=== PATIENT | male | born 1985 | race Caucasian/White ===

== ENCOUNTER 2016-03-26 13:37 | Emergency (ER) | payer OTHER ==
[2016-03-26 13:42] VITALS: BP 131/73; PULSE 74; RESP 18; TEMP 97.6
--- NOTE | 2016-03-26 14:00 | ED ---
General Adult HPI - General Chief complaint: Fall Stated complaint: Fall/10 stairs/Rib pain Time Seen by Provider: 03/26/16 13:50 Source: patient, RN notes reviewed Mode of arrival: ambulatory Limitations: no limitations - History of Present Illness Initial comments: The patient 30-year-old male who presents emergency room today with chief complaint fall occurred 3 days ago. He does admit that he slipped going down some steps. Does admit that he hit the left side of his ribs. Admits that his had some neck stiffness to the right side. States worse with movements. States he noticed the rib pain with certain movements and he coughs wheezes. Does admit that he believes he reinjured an old rib injury from a few months ago. He admits to some bruising over the right knee. Since she's been improving. He denies any other complaints or symptoms. Denies any headaches. Denies any loss consciousness. Patient denies any recent fever, chills, shortness of breath, chest pain, back pain, abdominal pain, nausea or vomiting, numbness or tingling, dysuria or hematuria, constipation or diarrhea, headaches or visual changes, or any other complaints. - Related Data Home Medications Medication Instructions Recorded Confirmed Baclofen 10 mg PO TID PRN 06/25/15 06/25/15 Hydrocodone/Acetaminophen [[place] 1 tab PO BID PRN 06/25/15 06/25/15 7.5-325] Omeprazole [PriLOSEC] 20 mg PO AC-BID 06/25/15 06/25/15 Previous Rx's Medication Instructions Recorded Gabapentin [Neurontin] 800 mg PO TID #42 cap 06/30/15 QUEtiapine [SEROquel] 150 mg PO HS #21 tab 06/30/15 Sertraline [Zoloft] 100 mg PO DAILY #15 tab 06/30/15 busPIRone HCL 15 mg PO TID #21 tab 06/30/15 HYDROcodone/APAP 5-325MG [[place] 1 tab PO Q4HR PRN #20 tab 01/04/16 5-325] Ibuprofen [Motrin] 800 mg PO Q8H PRN #20 tab 01/04/16 traMADol HCl [Ultram] 50 mg PO Q6H PRN #30 tab 03/26/16 Allergies Allergy/AdvReac Type Severity Reaction Status Date / Time venom-honey bee Allergy Anaphylaxis Verified 03/26/16 13:42 [bee venom (honey bee)] Review of Systems ROS Statement: Those systems with pertinent positive or pertinent negative responses have been documented in the HPI. ROS Other: All systems not noted in ROS Statement are negative. Past Medical History Past Medical History: Unable to Obtain, GERD/Reflux Additional Past Medical History / Comment(s): chronic low back pain, sciatica R leg, DDD, numbness to bilateral feet at times, falls, sinus problems at times, astigmatism involving 1 eye (pt unsure which). History of Any Multi-Drug Resistant Organisms: None Reported Past Surgical History: Adenoidectomy, Appendectomy, Tonsillectomy Past Anesthesia/Blood Transfusion Reactions: No Reported Reaction Past Psychological History: Anxiety, Bipolar, Depression Additional Psychological History / Comment(s): Pt states he may not be bipolar but may have borderline personality disorder instead. He has hx of suicide attempt 2014 with hospitalization and intubated and ventilated. Pt lives with his girlfriend. He has a suspended license. Smoking Status: Current every day smoker Past Alcohol Use History: Daily Additional Past Alcohol Use History / Comment(s): Pt states he is an alcoholic and has been on and off drinking. He states he last drank yesterday. He states he now does not go over 14 drinks/week. He states he smokes marijuana about 1-1 1/2 ounces a day. He states he is marijuana dependent. He denies any other drug abuse-states he takes medication as prescribed. He started smoking at age 13 yrs and was up to 1 1/2 ppd-has started using vapors and now smokes 1/2 ppd. Past Drug Use History: Marijuana Additional Drug Use History / Comment(s): See above section - Past Family History Father Family Medical History: Coronary Artery Disease (CAD) Additional Family Medical History / Comment(s): Father at age 57yrs during open heart surgery. Mother Family Medical History: Congestive Heart Failure (CHF) Additional Family Medical History / Comment(s): Mother of either CHF or heart valve problem at the age of 50yrs. General Exam - General Exam Comments Initial Comments: General: The patient is awake and alert, in no distress, and does not appear acutely ill. Eye: Pupils are equal, round and reactive to light, extra-ocular movements are intact. No nystagmus. There is normal conjunctiva bilaterally. No signs of icterus. Ears, nose, mouth and throat: There are moist mucous membranes and no oral lesions. Neck: The neck is supple, there is no tenderness or JVD. Cardiovascular: There is a regular rate and rhythm. No murmur, rub or gallop is appreciated. Respiratory: Lungs are clear to auscultation, respirations are non-labored, breath sounds are equal. No wheezes, stridor, rales, or rhonchi. Gastrointestinal: Soft, non-distended, non-tender abdomen without masses or organomegaly noted. There is no rebound or guarding present. No CVA tenderness. Bowel sounds are unremarkable. Musculoskeletal: Normal ROM. Normal appearance of cervical, thoracic, lumbar spine. No step-offs deformity is appreciated. Shows full range of motion of the cervical, thoracic, lumbar spine. No point tenderness. No bruising or swelling. Mild tenderness over the left lateral ribs. No step-offs. Strength 5/5. Sensation intact. Pulses equal bilaterally 2+. Neurological: A&O x 3. CN II-XII intact, There are no obvious motor or sensory deficits. Coordination appears grossly intact. Speech is normal. Skin: Skin is warm and dry and no rashes or lesions are noted. Psychiatric: Cooperative, appropriate mood & affect, normal judgment. Limitations: no limitations Course Vital Signs 03/26/16 13:38 Temperature 97.6 F Pulse Rate 74 Respiratory 18 Rate Blood Pressure 131/73 O2 Sat by Pulse 99 Oximetry Medical Decision Making - Medical Decision Making Patient's x-ray reviewed are unremarkable. Patient will be discharged home with prescriptions for tramadol. Disposition Clinical Impression: Contusion of rib on left side Disposition: HOME SELF-CARE Condition: Good Instructions: Rib Contusion (ED) Additional Instructions: Please use medication as discussed. Please follow-up with family doctor in the next 2 days of symptoms have not improved. Please return to emergency room if the symptoms increase or worsen or for any other concerns. Prescriptions: traMADol HCl [Ultram] 50 mg PO Q6H PRN #30 tab PRN Reason: Pain Time of Disposition: 14:28
--- NOTE | 2016-03-26 14:16 | XR ---
EXAMINATION TYPE: XR chest 2V DATE OF EXAM: 03/26/2016 2:04 PM COMPARISON: Prior chest x-ray December 2015 HISTORY: Fall downstairs TECHNIQUE: Frontal and lateral views of the chest are obtained. FINDINGS: There is no focal air space opacity, pleural effusion, or pneumothorax seen. The cardiac silhouette size is within normal limits. The osseous structures are intact. IMPRESSION: No acute cardiopulmonary process.
== END 2016-03-26 14:38 | disposition home or self-care (01) ==
LOC: EC 13:37
DX: S20.212A Contusion of left front wall of thorax, initial encounter (principal); W10.9XXA Fall (on) (from) unspecified stairs and steps, initial encounter; K21.9 Gastro-esophageal reflux disease without esophagitis; F17.200 Nicotine dependence, unspecified, uncomplicated; F12.20 Cannabis dependence, uncomplicated; F31.9 Bipolar disorder, unspecified; F41.9 Anxiety disorder, unspecified; Z79.899 Other long term (current) drug therapy; Z91.030 Bee allergy status
CPT/HCPCS: 71020; 99284

== ENCOUNTER → 2016-04-06 | Outpatient (CLI) | payer OTHER ==
--- NOTE | 2016-04-06 20:24 | XR ---
EXAMINATION TYPE: XR ribs LT DATE OF EXAM: 04/06/2016 7:16 PM COMPARISON: NONE HISTORY: Rib pain after falling a couple weeks ago TECHNIQUE: 4 views FINDINGS: There is a nondisplaced oblique fracture left anterior eighth rib. There is no sign of pleu ral effusion or pneumothorax. Left lung is clear of infiltrate. There is some bridging callus. IMPRESSION: Healing fracture anterior left eighth rib.
== END | disposition home or self-care (01) ==
LOC: RADXRMAIN 19:02
PROVIDERS: ATTEND Physician Assistant Medical
DX: S22.32XD Fracture of one rib, left side, subsequent encounter for fracture with routine healing (principal); R10.12 Left upper quadrant pain

== ENCOUNTER 2016-08-10 16:01 | Emergency (ER) | payer OTHER ==
[2016-08-10 16:08] VITALS: BP 133/69; PULSE 100; RESP 18; TEMP 97.8
--- NOTE | 2016-08-10 16:16 | ED ---
Skin/Abscess/FB HPI - General Chief complaint: Skin/Abscess/Foreign Body Stated complaint: Scab on Finger Time Seen by Provider: 08/10/16 16:09 Source: patient, RN notes reviewed Mode of arrival: ambulatory Limitations: no limitations - History of Present Illness Initial comments: 30-year-old male presents emergency Department chief complaint left hand third digit finger pain. Patient states that he is always has slight callused area most likely a wart. He states that he normally clicks it with toenail clippers. Patient states that he recently did that and states now it is red, swollen and slightly painful. Denies any fevers or chills. Patient states she' s had an infection like this in the past. Patient denies any other complaints. - Related Data Home Medications Medication Instructions Recorded Confirmed Baclofen 10 mg PO TID PRN 06/25/15 06/25/15 Hydrocodone/Acetaminophen [[place] 1 tab PO BID PRN 06/25/15 06/25/15 7.5-325] Omeprazole [PriLOSEC] 20 mg PO AC-BID 06/25/15 06/25/15 Previous Rx's Medication Instructions Recorded Gabapentin [Neurontin] 800 mg PO TID #42 cap 06/30/15 QUEtiapine [SEROquel] 150 mg PO HS #21 tab 06/30/15 Sertraline [Zoloft] 100 mg PO DAILY #15 tab 06/30/15 busPIRone HCL 15 mg PO TID #21 tab 06/30/15 HYDROcodone/APAP 5-325MG [[place] 1 tab PO Q4HR PRN #20 tab 01/04/16 5-325] Ibuprofen [Motrin] 800 mg PO Q8H PRN #20 tab 01/04/16 traMADol HCl [Ultram] 50 mg PO Q6H PRN #30 tab 03/26/16 Cephalexin [Keflex] 500 mg PO Q6HR #40 cap 08/10/16 Allergies Allergy/AdvReac Type Severity Reaction Status Date / Time venom-honey bee Allergy Anaphylaxis Verified 08/10/16 16:08 [bee venom (honey bee)] Review of Systems ROS Statement: Those systems with pertinent positive or pertinent negative responses have been documented in the HPI. ROS Other: All systems not noted in ROS Statement are negative. Past Medical History Past Medical History: GERD/Reflux Additional Past Medical History / Comment(s): chronic low back pain, sciatica R leg, DDD, numbness to bilateral feet at times, falls, sinus problems at times, astigmatism involving 1 eye (pt unsure which). History of Any Multi-Drug Resistant Organisms: None Reported Past Surgical History: Adenoidectomy, Appendectomy, Tonsillectomy Past Anesthesia/Blood Transfusion Reactions: No Reported Reaction Past Psychological History: Anxiety, Bipolar, Depression Additional Psychological History / Comment(s): Pt states he may not be bipolar but may have borderline personality disorder instead. He has hx of suicide attempt 2014 with hospitalization and intubated and ventilated. Pt lives with his girlfriend. He has a suspended license. Smoking Status: Current every day smoker Past Alcohol Use History: Occasional Additional Past Alcohol Use History / Comment(s): Pt states he is an alcoholic and has been on and off drinking. He states he last drank yesterday. He states he now does not go over 14 drinks/week. He states he smokes marijuana about 1-1 1/2 ounces a day. He states he is marijuana dependent. He denies any other drug abuse-states he takes medication as prescribed. He started smoking at age 13 yrs and was up to 1 1/2 ppd-has started using vapors and now smokes 1/2 ppd. Past Drug Use History: Marijuana Additional Drug Use History / Comment(s): See above section - Past Family History Father Family Medical History: Coronary Artery Disease (CAD) Additional Family Medical History / Comment(s): Father at age 57yrs during open heart surgery. Mother Family Medical History: Congestive Heart Failure (CHF) Additional Family Medical History / Comment(s): Mother of either CHF or heart valve problem at the age of 50yrs. General Exam Limitations: no limitations General appearance: alert, in no apparent distress Respiratory exam: Present: normal lung sounds bilaterally. Absent: respiratory distress, wheezes, rales, rhonchi, stridor Cardiovascular Exam: Present: regular rate, normal rhythm, normal heart sounds. Absent: systolic murmur, diastolic murmur, rubs, gallop, clicks Extremities exam: Present: other (Left hand third digit there is no erythema, callused region with no pustule on it) Course Vital Signs 08/10/16 16:05 Temperature 97.8 F Pulse Rate 100 Respiratory 18 Rate Blood Pressure 133/69 O2 Sat by Pulse 99 Oximetry Medical Decision Making - Medical Decision Making 30-year-old male presented for left hand finger pain. Patient has cellulitis of his finger secondary to cutting a wart with nail clippers. Patient was placed on Keflex patient follow-up with PCP return parameters were discussed. Disposition Clinical Impression: Cellulitis of finger of left hand Disposition: HOME SELF-CARE Condition: Stable Instructions: Cellulitis (ED) Additional Instructions: Please return to the Emergency Department if symptoms worsen or any other concerns. Prescriptions: Cephalexin [Keflex] 500 mg PO Q6HR #40 cap Referrals: Hayde Perez MD [Primary Care Provider] - 1-2 days Time of Disposition: 16:16
== END 2016-08-10 16:26 | disposition home or self-care (01) ==
LOC: EC 16:01
DX: L03.012 Cellulitis of left finger (principal); K21.9 Gastro-esophageal reflux disease without esophagitis; F17.200 Nicotine dependence, unspecified, uncomplicated; Z79.899 Other long term (current) drug therapy; Z91.030 Bee allergy status
CPT/HCPCS: 99283

== ENCOUNTER 2017-03-08 11:43 | Emergency (ER) | payer OTHER ==
[2017-03-08 12:07] VITALS: BP 145/85; PULSE 92; RESP 18; TEMP 97.5
[2017-03-08] MEDS ORDERED: IBUPROFEN 600 MG TAB PO STA (12:14)
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
--- NOTE | 2017-03-08 12:49 | XR ---
Bilateral RIBS with chest x-ray HISTORY: Trauma and pain Frontal view of the chest and 4 views of each side ribs submitted on a total of 9 images. Correlation to left RIBS 04/06/2016, chest x-ray 03/26/2016 Cardiac mediastinal silhouette, pulmonary vascularity and giovanna are within normal limits. There is no airspace disease, pneumothorax, or pleural effusion evident. There is no displaced rib fracture. IMPRESSION: No acute abnormality, bone scan may be of benefit to assess for occult fracture as indica ayala.
--- NOTE | 2017-03-08 12:50 | XR ---
Sternum HISTORY: Trauma and pain 2 views of the sternum No depressed sternal fracture evident. Bone mineralization is maintained. IMPRESSION: CT scan is of increased sensitivity to assess for sternal fracture. Consider bone scan as indicated for possible occult fracture.
== END 2017-03-08 13:30 | disposition home or self-care (01) ==
LOC: EC 11:43
DX: R07.89 Other chest pain (principal); S00.81XA Abrasion of other part of head, initial encounter; S80.212A Abrasion, left knee, initial encounter; F17.200 Nicotine dependence, unspecified, uncomplicated; Z87.828 Personal history of other (healed) physical injury and trauma; Z91.030 Bee allergy status; V43.62XA Car passenger injured in collision with other type car in traffic accident, initial encounter
CPT/HCPCS: 71111; 71120; 93005; 99284

== ENCOUNTER → 2017-03-18 | Outpatient (CLI) | payer OTHER ==
--- NOTE | 2017-03-18 14:23 | XR ---
EXAM TYPE: LUMBAR SPINE X RAY SERIES COMPARISON: 07/27/2014 HISTORY: Pain TECHNIQUE: 4 views are submitted. FINDINGS: Alignment is anatomic. The pedicles are intact. The transverse processes are intact. There is susp ected spondylolysis of L5. There is a chronic appearing wedge deformity of T12. Multilevel mild to moderate degenerative disc disease. Minimal anterolisthesis of L5 on S1. Chronic a ppearing endplate deformity of L4. Suspect spina bifida occulta of sacrum. IMPRESSION: 1. Multilevel degenerative disc disease with chronic appearing anterior mild wedge deformity T12. 2. Mild anterolisthesis L5 on S1 with bilateral spondylolysis. This can result in foraminal encroachm ent and canal stenosis consider MRI follow-up.
== END | disposition home or self-care (01) ==
LOC: RADXRMAIN 13:44
PROVIDERS: ATTEND Internal Medicine
DX: M51.36 Other intervertebral disc degeneration, lumbar region (principal); M47.816 Spondylosis without myelopathy or radiculopathy, lumbar region; M43.17 Spondylolisthesis, lumbosacral region
CPT/HCPCS: 72100

== ENCOUNTER → 2017-09-05 | Outpatient (CLI) | payer OTHER ==
--- NOTE | 2017-09-05 07:40 | MR ---
EXAMINATION TYPE: MR lumbar spine wo con DATE OF EXAM: 09/05/2017 COMPARISON: Lumbar spine x-ray March 18, 2017. CT lumbar spine July 27, 2014. HISTORY: Low back pain and herniated L5-S1 disc per order. Low back pain for 3 years going into right buttocks and thigh per patient. TECHNIQUE: Multiplanar, multisequence imaging of the lumbar spine is performed without IV contrast. FINDINGS: Sagittal images of the lumbar spine show vertebral body heights to remain satisfactory. The re is subtle or slight grade 1 anterolisthesis of L5 on S1. Bilateral pars defects are present confir med in retrospect on CT axial image 67. Prominent Schmorl node superior L4 endplate is redemonstrated posteriorly sagittal image 6. Disc desiccation L3-L4 and L5-S1 levels is noted. Mild disc space apollo rowing L5-S1 level is seen. Posterior disc herniations at these levels are present on sagittal images . The conus medullaris is normal in position and signal ending mid L1 level. The bone marrow signal intensity is within normal limits. No significant spurring is present. Axial images at T12-L1 level shows mild lobulated broad disc bulge mildly effacing anterior thecal sa c on axial image 28, bilateral neural foramina are patent. Axial images at L1-L2 level show mild broad disc bulge mildly effacing anterior thecal sac on axial i mage 23, bilateral neural foramina are patent. Axial images at L2-L3 level are felt within normal limits. Axial images at L3-L4 level show mild to moderate broad disc bulge with left paracentral disc protrus ion component axial image 12 effacing anterior thecal sac. Increased signal posteriorly consistent wi th annular tear is present. Bilateral neural foramina remain patent. Axial images at L4-L5 level are felt to appear within normal limits. Axial images at L5-S1 level show spondylolisthesis and broad-based right paracentral disc protrusion axial image 3 minimally effacing anterior thecal sac, there is asymmetric mild to moderate right-side d inferior neural foraminal narrowing encroaching on inferior right L5 nerve seen best sagittal image 10. Left-sided neural foramen is patent. Paraspinal muscle bulk is maintained. No suspicious retroperitoneal findings are noted. IMPRESSION: Multilevel degenerative changes as detailed above. Findings most prominent at L3-L4 and L 5-S1 levels. New subtle spondylolisthesis L5-S1 level due to bilateral L5 pars defects along with dis c herniation causing effacement of the exiting right L5 nerve likely accounting for patient's symptom s.
== END | disposition home or self-care (01) ==
LOC: RADMRIMAIN 06:15
PROVIDERS: ATTEND Internal Medicine
DX: M43.17 Spondylolisthesis, lumbosacral region (principal); M47.816 Spondylosis without myelopathy or radiculopathy, lumbar region; M47.817 Spondylosis without myelopathy or radiculopathy, lumbosacral region; M51.26 Other intervertebral disc displacement, lumbar region
CPT/HCPCS: 72148

== ENCOUNTER 2017-09-24 12:31 | Emergency (ER) | payer OTHER ==
[2017-09-24 12:44] VITALS: BP 146/77; PULSE 78; RESP 20; TEMP 98.4
[2017-09-24] MEDS ORDERED: HYDROcodone/APAP 7.5-325MG 1 EACH TAB PO ONE (12:56)
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
== END 2017-09-24 13:26 | disposition home or self-care (01) ==
LOC: EC 12:31
DX: G89.29 Other chronic pain (principal); M54.5 Low back pain; M51.25 Other intervertebral disc displacement, thoracolumbar region; M79.604 Pain in right leg; M79.605 Pain in left leg; F17.200 Nicotine dependence, unspecified, uncomplicated; Z91.030 Bee allergy status
CPT/HCPCS: 99283

== ENCOUNTER 2018-09-22 15:14 | Emergency (ER) | payer OTHER ==
[2018-09-22 15:28] VITALS: RESP 18
[2018-09-22 16:54] LABS: Appearance,Urine Clear (Clear); Bilirubin,Urine Negative (Negative); Blood,Urine Moderate (Negative); Calcium Oxalate Crystals,Urine Rare /hpf; Color,Urine Yellow; Glucose,Urine (UA) 2+ (Negative); Ketones,Urine Negative (Negative); Leukocyte Esterase,Urine Negative (Negative); Mucus,Urine Few /hpf; Nitrite,Urine Negative (Negative); Protein,Urine 1+ (Negative); RBC,Urine >182 /hpf (0-5); Specific Gravity,Urine 1.018 (1.001-1.035); WBC,Urine 8 /hpf (0-5)
--- NOTE | 2018-09-22 17:22 | CT ---
EXAMINATION TYPE: CT abdomen pelvis wo con DATE OF EXAM: 09/22/2018 HISTORY: Left flank pain CT DLP: 347.4 mGycm. Automated Exposure Control for Dose Reduction was Utilized. TECHNIQUE: CT scan of the abdomen and pelvis is performed without oral or IV contrast. COMPARISON: None FINDINGS: Within the limitations of a non-contrast study, the following observations are made. LUNG BASES: No significant abnormality is appreciated. LIVER/GB: No significant abnormality is appreciated. PANCREAS: No significant abnormality is seen. SPLEEN: No significant abnormality is seen. ADRENALS: No significant abnormality is seen. KIDNEYS: There is no hydronephrosis or hydroureter. There are a few scattered 1 mm right renal nonobs tructing calcifications, these are subtle. BOWEL: No significant abnormality is seen. GENITAL ORGANS: No gross abnormality seen. LYMPH NODES: No greater than 1cm abdominal or pelvic lymph nodes are appreciated. OSSEOUS STRUCTURES: No significant abnormality is seen. 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 OTHER: No significant additional abnormality is seen. IMPRESSION: Negative for obstructive uropathy; no acute process.
--- NOTE | 2018-09-22 17:25 | ED ---
Abdominal Pain HPI - General Chief Complaint: Abdominal Pain Stated Complaint: abd/back pain Time Seen by Provider: 09/22/18 15:38 Source: patient, family Mode of arrival: wheelchair Limitations: no limitations - History of Present Illness Initial Comments: Patient is a 32-year-old male presenting to emergency Department with abdominal pain. Patient reports the pain started approximately 2 hours ago and has since resolved. Patient reports the pain was sharp in nature and alleviated when resting in position. Patient reports a history of kidney stones and states this feels exactly the same. Patient reports the pain started in his left lower flank region and radiates across the left groin. Patient reports nausea but no vomiting. Patient also reports obstructive urinary symptoms but denies hematuria, hematochezia or melena. Patient denies taking any medication to alleviate the symptoms. - Related Data Previous Rx's Medication Instructions Recorded Ondansetron Odt [Zofran Odt] 4 mg PO Q8HR PRN #10 tab 09/22/18 Tamsulosin [Flomax] 0.4 mg PO DAILY #7 cap 09/22/18 Allergies Allergy/AdvReac Type Severity Reaction Status Date / Time venom-honey bee Allergy Anaphylaxis Verified 09/22/18 15:55 [bee venom (honey bee)] Review of Systems ROS Statement: Those systems with pertinent positive or pertinent negative responses have been documented in the HPI. ROS Other: All systems not noted in ROS Statement are negative. Past Medical History Past Medical History: GERD/Reflux Additional Past Medical History / Comment(s): chronic low back pain, sciatica R leg, DDD, numbness to bilateral feet at times, falls, sinus problems at times, astigmatism involving 1 eye (pt unsure which). History of Any Multi-Drug Resistant Organisms: MRSA Past Surgical History: Adenoidectomy, Appendectomy, Tonsillectomy Past Anesthesia/Blood Transfusion Reactions: No Reported Reaction Past Psychological History: Anxiety, Bipolar, Depression Smoking Status: Current every day smoker Past Alcohol Use History: None Reported Past Drug Use History: Marijuana, Methamphetamine - Past Family History Father Family Medical History: Coronary Artery Disease (CAD) Additional Family Medical History / Comment(s): Father at age 57yrs during open heart surgery. Mother Family Medical History: Congestive Heart Failure (CHF) Additional Family Medical History / Comment(s): Mother of either CHF or heart valve problem at the age of 50yrs. General Exam - General Exam Comments Initial Comments: General: Well-developed well-nourished distress HEENT: Normocephalic/atraumatic, PERLL, pharynx erythema, swallowing well, EAC no erythema, no exudates, TM clear, no cervical lymph nodes Neck: Supple, nontender, trachea midline Chest/Lungs: Normal respirations, no signs of respiratory distress clear to auscultation bilaterally no wheezes, rales, rhonchi Cardiac: Regular rate and rhythm, normal S1-S2, no murmurs rubs or gallops Abdomen/GI: Soft,, mild left lower quadrant pain with palpation, no guarding, left flank pain, negative McBurney point tenderness, negative Davey sign, negativeRovsing, negative psoas, negative obturator sign. Musculoskeletal: Nontender, full range of motion, no edema, strength equal bilaterally Skin: Warmth, no rashes or lesions, no cyanosis or diaphoresis Neurologic: AAO x 3, CN 2-12 intact, Psychiatric: Mood and affect normal, judgment normal Limitations: no limitations Course Vital Signs 09/22/18 15:25 Temperature 98.1 F Pulse Rate 87 Respiratory 18 Rate Blood Pressure 114/63 O2 Sat by Pulse 88 L Oximetry Medical Decision Making - Medical Decision Making Patient is a 32-year-old male presents emergency Department with abdominal pain. UA is remarkable for elevated red blood cells. CT of abdomen and pelvis is only indicative of small 1 mm stones. Patient reports that after coming to emergency department the pain has slowly subsided and is only aggravated when tapping the left flank site. I suspect the patient has already passed a kidney stone and the red blood cells are indicative of residual blood. Patient advised to follow-up with urology. Patient given Tylenol 3 starter pack and Flomax if recurrent episodes occur. Strict return parameters were thoroughly discussed the patient was understanding and agreeable. Case discussed physician. - Lab Data Lab Results 09/22/18 Range/Units 16:39 Urine Color Yellow Urine Appearance Clear (Clear) Urine pH 8.0 (5.0-8.0) Ur Specific [place] 1.018 (1.001-1.035) Urine Protein 1+ H (Negative) Urine Glucose (UA) 2+ H (Negative) Urine Ketones Negative (Negative) Urine Blood Moderate H (Negative) Urine Nitrite Negative (Negative) Urine Bilirubin Negative (Negative) Urine Urobilinogen 2.0 (<2.0) mg/dL Ur Leukocyte Esterase Negative (Negative) Urine RBC >182 H (0-5) /hpf Urine WBC 8 H (0-5) /hpf Calcium Oxalate Crystal Rare H (None) /hpf Urine Mucus Few H (None) /hpf Disposition Clinical Impression: Abdominal pain Disposition: HOME SELF-CARE Condition: Stable Instructions (If sedation given, give patient instructions): Abdominal Pain (ED) Additional Instructions: Please see prescribe medication as directed. Please follow-up with urology. Please return to emergency department if symptoms worsen. Prescriptions: Tamsulosin [Flomax] 0.4 mg PO DAILY #7 cap Ondansetron Odt [Zofran Odt] 4 mg PO Q8HR PRN #10 tab PRN Reason: Nausea Is patient prescribed a controlled substance at d/c from ED?: No Referrals: Jose Mitchell DO [Primary Care Provider] - 1-2 days Time of Disposition: 18:07
[2018-09-22] MEDS ORDERED: ACET/COD 300 MG/30 MG STARTER PACK 6 TAB BTL PO STA (18:04)
[2018-09-22 18:27] VITALS: BP 134/82; PULSE 62; TEMP 98.6
== END 2018-09-22 18:26 | disposition home or self-care (01) ==
LOC: EC 15:14
DX: R10.32 Left lower quadrant pain (principal); M54.9 Dorsalgia, unspecified; R11.0 Nausea; F17.200 Nicotine dependence, unspecified, uncomplicated; Z91.030 Bee allergy status; Z87.442 Personal history of urinary calculi
CPT/HCPCS: 74176; 81001; 99284

== ENCOUNTER 2019-04-28 00:40 | Emergency (ER) | payer OTHER ==
[2019-04-28 00:48] VITALS: BP 141/96; PULSE 102; RESP 18; TEMP 99
[2019-04-28] MEDS ORDERED: PENICILLIN VK 500MG STARTER 4 TAB BTL PO STA (01:01)
--- NOTE | 2019-04-28 01:02 | ED ---
ENT HPI - General Chief complaint: Dental/Oral Stated complaint: Oral Pain Time Seen by Provider: 04/28/19 00:55 Source: patient Mode of arrival: ambulatory Limitations: no limitations - History of Present Illness MD complaint: tooth pain -: days(s) Location: tooth # (19, 20) Severity: moderate Quality: aching Consistency: constant Improves with: none Worsens with: none Context- Dental: history of dental caries - Related Data Previous Rx's Medication Instructions Recorded Ondansetron Odt [Zofran Odt] 4 mg PO Q8HR PRN #10 tab 09/22/18 Tamsulosin [Flomax] 0.4 mg PO DAILY #7 cap 09/22/18 Penicillin V Potassium [Pen Vee K] 500 mg PO QID #48 tablet 04/28/19 Allergies Allergy/AdvReac Type Severity Reaction Status Date / Time venom-honey bee Allergy Anaphylaxis Verified 04/28/19 00:48 [bee venom (honey bee)] Review of Systems ROS Statement: Those systems with pertinent positive or pertinent negative responses have been documented in the HPI. ROS Other: All systems not noted in ROS Statement are negative. Constitutional: Denies: fever, chills ENT: Reports: dental pain. Denies: throat pain Respiratory: Denies: dyspnea Cardiovascular: Denies: chest pain, palpitations Neurological: Denies: headache Past Medical History Past Medical History: GERD/Reflux Additional Past Medical History / Comment(s): chronic low back pain, sciatica R leg, DDD, numbness to bilateral feet at times, falls, sinus problems at times, astigmatism involving 1 eye (pt unsure which). History of Any Multi-Drug Resistant Organisms: MRSA Past Surgical History: Adenoidectomy, Appendectomy, Tonsillectomy Past Anesthesia/Blood Transfusion Reactions: No Reported Reaction Past Psychological History: Anxiety, Bipolar, Depression Smoking Status: Current every day smoker Past Alcohol Use History: None Reported Past Drug Use History: Marijuana, Methamphetamine - Past Family History Father Family Medical History: Coronary Artery Disease (CAD) Additional Family Medical History / Comment(s): Father at age 57yrs during open heart surgery. Mother Family Medical History: Congestive Heart Failure (CHF) Additional Family Medical History / Comment(s): Mother of either CHF or heart valve problem at the age of 50yrs. General Exam Limitations: no limitations General appearance: alert, in no apparent distress Head exam: Present: atraumatic, normocephalic Eye exam: Present: normal appearance Expanded Mouth exam: Present: tongue normal. Absent: tongue elevation, laceration Teeth exam: Present: dental caries Throat exam: normal inspection, other (There is temporary filling material to tooth 19 and 20. There is no palpable dental abscess. Mild gingivitis adjacent.) Neck exam: Present: full ROM. Absent: tenderness, meningismus, lymphadenopathy Skin exam: Present: warm, dry, intact, normal color. Absent: rash Course Vital Signs 04/28/19 00:46 Temperature 99 F Pulse Rate 102 H Respiratory 18 Rate Blood Pressure 141/96 O2 Sat by Pulse 98 Oximetry Disposition Clinical Impression: Dental caries Disposition: HOME SELF-CARE Condition: Good Instructions (If sedation given, give patient instructions): Toothache (ED) Prescriptions: Penicillin V Potassium [Pen Vee K] 500 mg PO QID #48 tablet Is patient prescribed a controlled substance at d/c from ED?: No Referrals: Memo Brown MD [Primary Care Provider] - 1-2 days
== END 2019-04-28 01:15 | disposition home or self-care (01) ==
LOC: EC 00:40
DX: K02.9 Dental caries, unspecified (principal); F17.200 Nicotine dependence, unspecified, uncomplicated; Z91.030 Bee allergy status
CPT/HCPCS: 99282